=== PATIENT | male | born 1990 | race Caucasian/White ===

== ENCOUNTER 2019-10-14 17:41 | Emergency (ER) | payer MEDICAID ==
[~2019-10-14] VITALS: Ht 177.8 cm; Wt 104.3 kg
[2019-10-14 17:41] VITALS: BP 148/90
[2019-10-14 20:10] VITALS: BP 148/90
== END 2019-10-14 20:10 | disposition home or self-care (01) ==
LOC: MED 17:41
DX: M79.671 Pain in right foot (principal); M79.672 Pain in left foot
CPT/HCPCS: 99281; 99283